=== PATIENT | female | born 1945 ===

== ENCOUNTER 2018-02-09 07:21 | Emergency (ER) | payer SELFPAY ==
[2018-02-09 07:31] VITALS: BP 146/78; PULSE 76; RESP 18; TEMP 98.6; O2SAT 99
[2018-02-09 08:04] LABS: SQUAMOUS EPITHIAL 1 /hpf (0-5); URINE BACTERIA RARE (<OCC); URINE BILIRUBIN NEGATIVE (NEGATIVE); URINE BLOOD NEGATIVE (NEGATIVE); URINE CLARITY Clear (Clear); URINE COLOR Yellow (YELLOW); URINE GLUCOSE (UA) NORMAL (Normal); URINE LEUKOCYTE ESTERASE 2+ Leu/uL (Negative); URINE PROTEIN NEGATIVE (NEGATIVE); URINE UROBILINOGEN NORMAL mg/dL (0.2-1.0)
--- NOTE | 2018-02-09 08:23 | C.PDOC ---
History Of Present Illness 72 y/o F p/w suprapubic pain, dysuria, urinary frequency x few days. Patient states she has recurrent UTIs and has undergone testing for fistula or other causes but nothing has been found. She reports wiping front to back. Denies fever, vomiting, back pain, chills. States ciprofloxacin works well for her. Time Seen by Provider: 02/09/18 07:43 Chief Complaint (Nursing): Female Genitourinary Past Medical History Vital Signs: Last Vital Signs Temp 98.6 F 02/09/18 07:24 Pulse 76 02/09/18 07:24 Resp 18 02/09/18 07:24 BP 146/78 02/09/18 07:24 Pulse Ox 99 02/09/18 07:24 - Medical History PMH: HTN Family History: States: No Known Family Hx - Social History Hx Alcohol Use: No Hx Substance Use: No - Immunization History Hx Tetanus Toxoid Vaccination: No Hx Influenza Vaccination: No Hx Pneumococcal Vaccination: No Review Of Systems Except As Marked, All Systems Reviewed And Found Negative. Constitutional: Negative for: Fever Respiratory: Negative for: Shortness of Breath Physical Exam - Physical Exam Appears: Non-toxic, No Acute Distress Skin: No Rash Head: Normacephalic Eye(s): bilateral: PERRL Oral Mucosa: Moist Neck: Supple Chest: No Tenderness Cardiovascular: Rhythm Regular Respiratory: Normal Breath Sounds Gastrointestinal/Abdominal: Soft, No Tenderness Back: No CVA Tenderness Extremity: No Tenderness, No Swelling Pulses: Left Radial: Normal, Right Radial: Normal Neurological/Psych: Oriented x3 ED Course And Treatment O2 Sat by Pulse Oximetry: 99 Medical Decision Making Medical Decision Making: Culture sent. Instructed to return to ED for worsening pain, fever, back pain, vomiting, dyspnea, or any other problem. Disposition - Disposition Disposition: HOME/ ROUTINE Disposition Time: 08:22 Condition: STABLE Prescriptions: Ciprofloxacin [Cipro] 500 mg PO BID #14 tab Instructions: Acute Cystitis (DC) Forms: [employer] (Kinyarwanda) - Clinical Impression Clinical Impression: Cystitis
== END 2018-02-09 08:29 | disposition home or self-care (01) ==
LOC: C.ER 07:21
DX: N30.90 Cystitis, unspecified without hematuria (principal); I10 Essential (primary) hypertension

== ENCOUNTER 2018-04-21 09:27 | Emergency (ER) | payer SELFPAY ==
[2018-04-21 09:38] VITALS: BP 130/71; PULSE 75; RESP 18; TEMP 97.7; O2SAT 99; BMI 24.5
--- NOTE | 2018-04-21 10:08 | C.PDOC ---
History Of Present Illness 72 y/o female, with history of high blood pressure, diabetes, high cholesterol, breast cancer, and UTIs, comes in to ED complaining of dysuria over the past 4 days, as well as increased urinary frequency. Patient states it feels like her previous UTIs. She denies any back pain. No fall or trauma. No rash, abnormal vaginal discharge, constipation, or diarrhea. No dark or bloody stool. No fever, chills, or night sweats. Time Seen by Provider: 04/21/18 09:36 Chief Complaint (Nursing): Female Genitourinary History Per: Patient History/Exam Limitations: no limitations Onset/Duration Of Symptoms: Days Current Symptoms Are (Timing): Still Present Past Medical History Reviewed: Historical Data, Nursing Documentation, Vital Signs Vital Signs: Last Vital Signs Temp 97.7 F 04/21/18 09:32 Pulse 75 04/21/18 09:32 Resp 18 04/21/18 09:32 BP 130/71 04/21/18 09:32 Pulse Ox 99 04/21/18 09:32 - Medical History PMH: HTN, Hypercholesterolemia Family History: States: No Known Family Hx - Social History Hx Alcohol Use: No Hx Substance Use: No - Immunization History Hx Tetanus Toxoid Vaccination: No Hx Influenza Vaccination: No Hx Pneumococcal Vaccination: No Review Of Systems Constitutional: Negative for: Fever, Chills, Sweats Gastrointestinal: Negative for: Diarrhea, Constipation, Hematochezia Genitourinary: Positive for: Dysuria, Frequency (increased frequency of urine). Negative for: Vaginal Discharge Musculoskeletal: Negative for: Back Pain Skin: Negative for: Rash Physical Exam - Physical Exam Appears: Non-toxic, No Acute Distress Skin: Warm, Dry Head: Normacephalic Eye(s): bilateral: Normal Inspection Oral Mucosa: Moist Neck: Supple Cardiovascular: Rhythm Regular, No Murmur Respiratory: No Rales, No Rhonchi, No Wheezing Gastrointestinal/Abdominal: Soft, No Tenderness Extremity: Bilateral: Normal Color And Temperature Neurological/Psych: Oriented x3, Normal Speech ED Course And Treatment O2 Sat by Pulse Oximetry: 99 (RA) Pulse Ox Interpretation: Normal Medical Decision Making Medical Decision Makin yr old female w/ hx of DM2, HTN, HLD p/w dysuria. No signs of pyelo. No vaginal d/c. No loss weight. No abdominal pain. No midline tenderness. Impression: UTI, unlikely pyelo, back is nontender. No CVAT Plan: --Urinalysis 1028 +UTI w/ mild blood Will rx remains afebrile w/ out CVAT pt notes cipro has worked well for her before clear for d/c home w/ return indications and f/u. Pt agreeable to plan. Disposition - Disposition Referrals: Benja Murrell MD [Staff Provider] - [facility] [Outside] [facility] [Outside] [facility] [Outside] Disposition: HOME/ ROUTINE Disposition Time: 10:31 Condition: GOOD Additional Instructions: TARA FORDE, thank you for letting us take care of you today. Your provider was Geoff Goodman and you were treated for POSSIBLE UTI. The emergency medical care you received today was directed at your acute symptoms. If you were prescribed any medication, please fill it and take as directed. It may take several days for your symptoms to resolve. Return to the Emergency Department if your symptoms worsen, do not improve, or if you have any other problems. Please contact your doctor or call one of the physicians/clinics you have been referred to that are listed on the Patient Visit Information form that is included in your discharge packet. Bring any paperwork you were given at discharge with you along with any medications you are taking to your follow up visit. Our treatment cannot replace ongoing medical care by a primary care provider outside of the emergency department. Thank you for allowing the [facility] team to be part of your care today. If you had an X-Ray or CT scan: A Radiologist will review the ED reading if any change in treatment is needed we will contact you. If you had a blood, urine, or wound culture: It will take several days for the results, if any change in treatment is needed we will contact you. If you had an STI test: It will take 48 hours for the results. Please call after 1 week if you have not heard back. Prescriptions: Ciprofloxacin [Cipro] 500 mg PO BID 12 Days #24 tab Instructions: Urinary Tract Infection, Adult (DC) Forms: [employer] (Pashto), [employer] (Libyan) - Clinical Impression Clinical Impression: UTI (urinary tract infection) - Scribe Statement The provider has reviewed the documentation as recorded by the Scribe Rosario Martinez Provider Attestation: All medical record entries made by the Master were at my direction and personally dictated by me. I have reviewed the chart and agree that the record accurately reflects my personal performance of the history, physical exam, m edical decision making, and the department course for this patient. I have also personally directed, reviewed, and agree with the discharge instructions and disposition.
[2018-04-21 10:16] LABS: SQUAMOUS EPITHIAL < 1 /hpf (0-5); URINE BACTERIA RARE (<OCC); URINE BILIRUBIN NEGATIVE (NEGATIVE); URINE CLARITY Hazy (Clear); URINE COLOR Yellow (YELLOW); URINE GLUCOSE (UA) NORMAL (Normal); URINE LEUKOCYTE ESTERASE 3+ Leu/uL (Negative); URINE PROTEIN NEGATIVE (NEGATIVE); URINE UROBILINOGEN NORMAL mg/dL (0.2-1.0)
[2018-04-21 10:19] LABS: URINE BLOOD 1+ (NEGATIVE)
== END 2018-04-21 10:49 | disposition home or self-care (01) ==
LOC: C.ER 09:27
DX: N39.0 Urinary tract infection, site not specified (principal); I10 Essential (primary) hypertension; E78.00 Pure hypercholesterolemia, unspecified; E11.9 Type 2 diabetes mellitus without complications

== ENCOUNTER 2018-04-25 22:38 | Emergency (ER) | payer SELFPAY ==
[2018-04-25 22:38] VITALS: BMI 24.5
--- NOTE | 2018-04-26 00:17 | C.PDOC ---
History Of Present Illness Patient seen tonight due to fever and posterior chest and shoulder disscomfort. Todd any definite chest pain. Hx of UTI and on cipro. Chief Complaint (Nursing): Upper Extremity Problem/Injury History Per: Patient, Family History/Exam Limitations: language barrier Onset/Duration Of Symptoms: Days Current Symptoms Are (Timing): Better Quality: Aching Severity: Mild Pain Scale Rating Of: 2 Exacerbating Factor(s): Nothing Recent travel outside of the [place]: No Additional History Per: Family Past Medical History Vital Signs: Last Vital Signs Temp 98.8 F 04/25/18 23:17 Pulse 97 H 04/25/18 23:17 Resp 16 04/25/18 23:17 BP 107/62 04/25/18 23:17 Pulse Ox 97 04/25/18 23:17 - Medical History PMH: HTN, Hypercholesterolemia Surgical History: No Surg Hx Family History: States: Unknown Family Hx - Social History Hx Alcohol Use: No Hx Substance Use: No - Immunization History Hx Tetanus Toxoid Vaccination: No Hx Influenza Vaccination: No Hx Pneumococcal Vaccination: No Review Of Systems Constitutional: Negative for: Chills Eyes: Negative for: Pain, Vision Change, Conjunctivae Inflammation Cardiovascular: Negative for: Chest Pain, Paroxysmal Noc. Dyspnea Respiratory: Negative for: Cough, Shortness of Breath, Hemoptysis, SOB with Excertion, Pleuritic Pain, Sputum Genitourinary: Positive for: Dysuria, Frequency. Negative for: Hematuria Musculoskeletal: Positive for: Shoulder Pain, Arm Pain. Negative for: Neck Pain Skin: Positive for: Other (no swelling noted). Negative for: Rash Neurological: Negative for: Weakness, Numbness, Incoordination Psych: Negative for: Anxiety, Depression ED Course And Treatment - Laboratory Results Result Diagrams: 04/26/18 00:19 04/26/18 00:19 ECG: Interpreted By Me, Viewed By Me ECG Rhythm: Sinus Rhythm ECG Interpretation: No Acute Changes, Abnormal Interpretation Of ECG: NSR, LAD, no acute change. Rate From EC O2 Sat by Pulse Oximetry: 97 Pulse Ox Interpretation: Normal - Radiology CXR: Interpreted by Me, Viewed By Me CXR Interpretation: Yes: No Acute Disease, Other (normal chest film). No: Infiltrates Disposition Counseled Patient/Family Regarding: Diagnosis - Disposition Referrals: [facility] [Outside] Disposition: HOME/ ROUTINE Disposition Time: 02:31 Condition: STABLE Prescriptions: Naproxen 375 mg PO TIDPC #14 tablet Instructions: Fibromyalgia (DC) Forms: [employer] (Japanese) - POA Present On Arrival: None - Clinical Impression Clinical Impression: Muscular pain
[2018-04-26 00:23] LABS: BASO % 0.3 % (0.0-2.0); EOS # 0.1 K/uL (0.0-0.7); EOS % 1.1 % (0.0-4.0); HEMOGLOBIN 11.4 g/dL (11.0-16.0); LYMPH # 1.2 K/uL (1.0-4.3); LYMPH % 12.8 % (20.0-40.0); MEAN CELL VOLUME 93.7 fL (81.0-99.0); MEAN CORPUSCULAR HGB CONC 33.1 g/dL (33.0-37.0); MEAN PLATELET VOLUME 8.5 fL (7.2-11.7); MONO # 0.3 K/uL (0.0-0.8); MONO % 3.2 % (0.0-10.0); NEUT # 7.8 K/uL (1.8-7.0); NEUT % 82.6 % (50.0-75.0); RBC 3.66 Mil/uL (3.80-5.20); RED CELL DISTRIBUTION WIDTH 13.5 % (11.5-14.5); WHITE BLOOD COUNT 9.4 K/uL (4.8-10.8)
[2018-04-26 00:43] LABS: ALB/GLOB RATIO 1.5 (1.0-2.1); ALBUMIN 3.9 g/dL (3.5-5.0); ALT/SGPT 11 U/L (9-52); AST/SGOT 19 U/L (14-36); BLOOD UREA NITROGEN 22 mg/dL (7-17); CALCIUM 9.9 mg/dl (8.6-10.4); GFR NON-AFRICAN AMERICAN > 60
[2018-04-26 00:50] LABS: SQUAMOUS EPITHIAL 1 /hpf (0-5); URINE BILIRUBIN NEGATIVE (NEGATIVE); URINE BLOOD NEGATIVE (NEGATIVE); URINE CLARITY Clear (Clear); URINE COLOR Yellow (YELLOW); URINE GLUCOSE (UA) NORMAL (Normal); URINE LEUKOCYTE ESTERASE NEG Leu/uL (Negative); URINE PROTEIN NEGATIVE (NEGATIVE); URINE UROBILINOGEN NORMAL mg/dL (0.2-1.0)
[2018-04-26 03:23] VITALS: BP 140/80; PULSE 90; RESP 20; TEMP 98; O2SAT 98
--- NOTE | 2018-04-26 10:21 | RAD ---
Date of service: 04/26/2018 HISTORY: Chest discomfort COMPARISON: No prior. TECHNIQUE: Chest PA and lateral FINDINGS: LINES AND TUBES: None. LUNG AND PLEURA: The lungs are well inflated and clear. No pleural effusion or pneumothorax. HEART AND MEDIASTINUM: The heart is not enlarged. There are aortic atherosclerotic calcifications present. The hilar and mediastinal contours are within normal limits. SKELETAL STRUCTURES: The bony structures are within normal limits for the patient's age. VISUALIZED UPPER ABDOMEN: Normal. OTHER FINDINGS: None. IMPRESSION: No active pulmonary disease.
== END 2018-04-26 03:21 | disposition home or self-care (01) ==
LOC: C.ER 22:38
DX: M79.10 Myalgia, unspecified site (principal)
CPT/HCPCS: 71046; 80053; 81001; 84484; 85025; 85378; 87086; 96374; 99284; J1885